=== PATIENT | female | born 1940 | race Caucasian/White ===

== ENCOUNTER 2016-05-16 20:55 | Emergency (ER) | payer OTHER, MEDICARE ==
[2016-05-16 21:01] VITALS: BMI 31.4
--- NOTE | 2016-05-16 21:07 | PDOC ---
Rapid Medical Evaluation Chief Complaint: Chest Pain Time Seen by Provider: 05/16/16 21:00 Medical Evaluation: Allergies Allergy/AdvReac Type Severity Reaction Status Date / Time ramipril [From Altace] Allergy Mild rash, Verified 05/16/16 20:59 itching Vital Signs Temp Pulse Resp BP Pulse Ox 97.9 F 55 L 20 158/76 100 05/16/16 20:59 05/16/16 20:59 05/16/16 20:59 05/16/16 20:59 05/16/16 20:59 05/16/16 21:03 RME Note: I have performed a brief, in-person evaluation of this patient . This patient presents with CC: sign. cardiac hx; with CP , left arm numbness with nausea Pertinent PE findings are: Pale I have ordered: EKG, labs; straight to ED post EKG The patient will proceed to ED for further evaluation.
[2016-05-16] MEDS ORDERED: morphine CARPU-JECT 2 MG/1 ML DISP.SYRIN IVPUSH ONE ×2 (21:17→22:06)
[2016-05-16] MEDS ORDERED: ASPIRIN 81 MG CHEWABLE TABLETS PO ONE (21:20)
[2016-05-16] MEDS ORDERED: HEPARIN NA (PORCINE) 5,000 UNITS/ML 1ML VIAL IVPUSH PRN (21:21)
[2016-05-16] MEDS ORDERED: CLOPIDOGREL BISULFATE 300 MG TABLET PO ONE (21:22)
[2016-05-16] MEDS ORDERED: ONDANSETRON 4 MG/2 ML VIAL IVPUSH STA (21:23)
[2016-05-16 21:24] LABS: BASOPHIL 0.6 % (0-2.0); EOSINOPHIL 1.2 % (0-4.5); MCH 30.2 pg (25.7-33.7); MCHC 33.8 g/dl (32.0-36.0); MEAN CELL VOLUME 89.6 fl (80-96); MEAN PLT VOLUME 8.7 fl (7.5-11.1); NEUTROPHILS 65.9 % (42.8-82.8); PLATELET COUNT 237 K/MM3 (134-434); WHITE BLOOD COUNT 9.5 K/mm3 (4.0-10.0)
[2016-05-16] MEDS ORDERED: METOPROLOL TARTRATE 5 MG/5 ML VIAL IVPUSH ONE (21:26)
[2016-05-16] MEDS ORDERED: CLOPIDOGREL BISULFATE 300 MG TABLET ONE (21:29)
[2016-05-16] MEDS ORDERED: ASPIRIN 81 MG CHEWABLE TABLETS ONE (21:29)
[2016-05-16] MEDS ORDERED: HEPARIN NA (PORCINE) 5,000 UNITS/ML 1ML VIAL ONE (21:29)
[2016-05-16] MEDS ORDERED: morphine CARPU-JECT 4 MG/1 ML DISP.SYRIN ONE ×2 (21:29→22:06)
[2016-05-16] MEDS ORDERED: ONDANSETRON 4 MG/2 ML VIAL ONE (21:29)
--- NOTE | 2016-05-16 21:30 | PDOC ---
[id number] No Limitations - History of Present Illness Initial Comments: 05/16/16 21:54 The patient is a 75 year old female with significant past medical history of CAD , PR x2 s/p CABG with stents x3, hypertension, diabetes, diverticulitis, and arthritis who presents to the ED with left sternal chest pain that began today. Patient reports she went to bed in her usual state of health last night when she suddenly developed left sternal chest pain early this morning that she describes as pressure-like sensation radiating down left arm and to the back. She states her chest pain was intermittent up until 5pm when her chest pain worsened and became persistent. She also has complaints of nausea, diaphoresis, and slightly SOB. Patient denies lightheadedness, vomiting, or leg swelling. The patient denies fever, chills, cough, abdominal pain, and diarrhea. Allergies: ramipril Social History: No alcohol, tobacco, or drug use reported. Past Surgical History: CABG with stents x3, cholecystectomy PCP: Dr. Darvin Cutler Cardio: Dr. Yasmany Lake <Estephania Couch - Last Filed: 05/16/16 22:59> - General History Source: Patient, Family <Blaine Loera - Last Filed: 05/17/16 19:18> - General Chief Complaint: Chest Pain Stated Complaint: CHEST PAIN Time Seen by Provider: 05/16/16 21:00 Past History <Estephania Couch - Last Filed: 05/16/16 22:59> - Past Medical History Cardiac Disorders: Yes (PR X 2) Diabetes: Yes (BORDERLINE) GI Disorders: Yes (DIVERTICULITIS) HTN: Yes - Surgical History Abdominal Surgery: Yes Cardiac Surgery: Yes (TRIPLE BYPASS AND STENTS X 3) Cholecystectomy: Yes - Psycho/Social/Smoking Cessation Hx Anxiety: Yes Suicidal Ideation: No Smoking Status: No Smoking History: Never smoked Have you smoked in the past 12 months: No Number of Cigarettes Smoked Daily: 0 If you are a former smoker, when did you quit?: 2005 Hx Alcohol Use: No Drug/Substance Use Hx: No Substance Use Type: None Hx Substance Use Treatment: No <Blaine Loera - Last Filed: 05/17/16 19:18> - Past Medical History Allergies/Adverse Reactions: Allergies Allergy/AdvReac Type Severity Reaction Status Date / Time ramipril [From Altace] Allergy Mild rash, Verified 05/16/16 20:59 itching Home Medications: Ambulatory Orders Atorvastatin Ca [Lipitor] 40 mg PO HS #1 tablet 10/28/13 Carvedilol 12.5 mg PO BID 05/16/16 Potassium Chloride [K-Dur -] 40 meq PO DAILY 05/16/16 Telmisartan 40 mg PO DAILY 05/16/16 Triamterene [Dyrenium -] 37.5 mg PO Q48H 05/16/16 Review of Systems - Review of Systems Able to Perform ROS?: Yes Comments:: 05/16/16 21:54 CONSTITUTIONAL: +diaphoresis Absent: fever, chills, generalized weakness, malaise, loss of appetite HEENT: Absent: rhinorrhea, nasal congestion, throat pain, throat swelling, difficulty swallowing, mouth swelling, ear pain, eye pain, visual Changes CARDIOVASCULAR: +left sternal chest pain radiating down left arm and to the back Absent: syncope , palpitations, irregular heart rate, lightheadedness, peripheral edema RESPIRATORY: +SOB Absent: cough, dyspnea with exertion, orthopnea, wheezing, stridor, hemoptysis GASTROINTESTINAL: +nausea Absent: abdominal pain, abdominal distension, vomiting, diarrhea, constipation, melena, hematochezia GENITOURINARY: Absent: dysuria, frequency, urgency, hesitancy, hematuria, flank pain, genital pain MUSCULOSKELETAL: Absent: arthralgia, joint swelling SKIN: Absent: rash, itching, pallor NEUROLOGIC: Absent: headache, focal weakness or paresthesias, dizziness, unsteady gait, seizure, mental status changes, bladder or bowel incontinence <Estephania Couch - Last Filed: 05/16/16 22:59> *Physical Exam - Vital Signs Last Vital Signs Temp Pulse Resp BP Pulse Ox 97.9 F 57 L 18 195/86 100 05/16/16 20:59 05/16/16 21:44 05/16/16 21:44 05/16/16 21:44 05/16/16 21:44 - Physical Exam Comments: 05/16/16 21:54 GENERAL: Well developed, well nourished. Awake and alert. Mild distress. HEENT: Normocephalic, atraumatic. PERRLA, EOMI. No conjunctival pallor. Sclera are non- icteric. Moist mucous membranes. Oropharynx is clear. NECK: Supple. Full ROM. No JVD. Carotid pulses 2+ and symmetric, without bruits. No thyromegaly. No lymphadenopathy. CARDIOVASCULAR: Bradycardia. Regular rhythm. No murmurs, rubs, or gallops. Distal pulses are 2+ and symmetric. PULMONARY: No evidence of respiratory distress. Lungs clear to auscultation bilaterally. No wheezing, rales or rhonchi. ABDOMINAL: Soft. Non-tender. Non-distended. No rebound or guarding. No organomegaly. Normoactive bowel sounds. MUSCULOSKELETAL Normal range of motion at all joints. No bony deformities or tenderness. No CVA tenderness. EXTREMITIES: No cyanosis. No clubbing. No edema. No calf tenderness. SKIN: Warm and dry. Normal capillary refill. No rashes. No jaundice. NEUROLOGICAL: Alert, awake, appropriate. Cranial nerves 2-12 intact. Moving all extremities. No gross focal neurological deficits. PSYCHIATRIC: Cooperative. Good eye contact. Appropriate mood and affect. <Estephania Couch - Last Filed: 05/16/16 22:59> - Vital Signs Last Vital Signs Temp Pulse Resp BP Pulse Ox 97.9 F 57 L 20 212/92 100 05/16/16 20:59 05/16/16 21:27 05/16/16 21:27 05/16/16 21:27 05/16/16 21:27 <Blaine Loera - Last Filed: 05/17/16 19:18> Heart Score/ECG Review - ECG Impressions Comment:: 05/16/16 21:07 Sinus bradycardia @53bpm St elevation, consider inferior injury or acute infarct ACUTE PR / STEMI Consider right ventricular involvement in acute inferior infarct Abnormal ECG 05/16/16 22:13 Sinus bradycardia @51bpm Otherwise normal ECG <Estephania Couch - Last Filed: 05/16/16 22:59> ED Treatment Course - LABORATORY CBC & Chemistry Diagram: 05/16/16 21:14 05/16/16 21:14 - ADDITIONAL ORDERS Additional order review: 05/16/16 21:14 RBC 4.50 MCV 89.6 MCHC 33.8 RDW 14.0 MPV 8.7 Neutrophils % 65.9 Lymphocytes % 24.0 Monocytes % 8.3 Eosinophils % 1.2 D Basophils % 0.6 - Medications Given in the ED: ED Medications Discontinued Medications Generic Name Dose Route Start Last Admin Trade Name Madhavi PRN Reason Stop Dose Admin Aspirin 324 mg 05/16/16 21:20 05/16/16 21:37 Asa - PO 05/16/16 21:21 324 mg ONCE ONE Administration Clopidogrel Bisulfate 600 mg 05/16/16 21:22 05/16/16 21:37 Plavix - PO 05/16/16 21:23 600 mg ONCE ONE Administration Metoprolol Tartrate 5 mg 05/16/16 21:26 05/16/16 21:48 Lopressor Injection - IVPUSH 05/16/16 21:27 Not Given ONCE ONE Morphine Sulfate 4 mg 05/16/16 21:17 05/16/16 21:37 Morphine Injection - IVPUSH 05/16/16 21:18 4 mg ONCE ONE Administration Ondansetron HCl 4 mg 05/16/16 21:23 05/16/16 21:37 Zofran Injection IVPUSH 05/16/16 21:24 4 mg ONCE STA Administration <Estephania Couch - Last Filed: 05/16/16 22:59> - LABORATORY CBC & Chemistry Diagram: 05/16/16 21:14 05/16/16 21:14 - ADDITIONAL ORDERS Additional order review: 05/16/16 21:14 RBC 4.50 MCV 89.6 MCHC 33.8 RDW 14.0 MPV 8.7 Neutrophils % 65.9 Lymphocytes % 24.0 Monocytes % 8.3 Eosinophils % 1.2 D Basophils % 0.6 <Blaine Loera - Last Filed: 05/17/16 19:18> Medical Decision Making - Medical Decision Making 05/16/16 21:[address] Alton Tapia (via cell phone) covering for Dr. Uriel Hernandez at 21:07 and case was discussed. Patient's EKG was transmitted to Dr. Tapia who confirmed inferior wall STEMI and asked for patient to be transferred to [facility] cardiac geochemical laboratory technician. 05/16/16 21:26 Paged [facility] ([facility]) transfer center for interventional cardiology on-call [phone] Awaiting call back for possible acceptance 05/16/16 21:40 Dr. Copeland, Interventional Cardiology, responded back at 21:40. States patient is not having STEMI after evaluating a transmitted EKG and advised to treat medically. 05/16/16 22:03 Paged [facility] transfer center at 22:[address] Woods, ER Attending at [facility], accepts patient's case. Subsequently, spoke to thermite bomb loader, Dr. Wesley, who will follow up with patient. <Estephania Couch - Last Filed: 05/16/16 22:59> - Medical Decision Making 05/16/16 22:42 Dr. Loera: The scribe's documentation has been prepared under my direction and personally reviewed by me in its entirery. I confirm that the note above accurately reflects all work, treatment, procedures, and medical decision making performed by me. <Blaine Loera - Last Filed: 05/17/16 19:18> *DC/Admit/Observation/Transfer - Attestations Scribe Attestion: 05/16/16 22:11 Documentation prepared by Estephania Couch, acting as medical billing specialist for Blaine Loera MD <Estephania Couch - Last Filed: 05/16/16 22:59> - Discharge Dispostion Admit: No - Transfer to Acute Care Facility Receiving Facility: [facility]. (Dr. Woods accepts case.) <Blaine Loera - Last Filed: 05/17/16 19:18> Diagnosis at time of Disposition: STEMI (ST elevation myocardial infarction) Qualifiers: Involved coronary artery: unspecified coronary artery Qualified Code(s): I21.3 - ST elevation (STEMI) myocardial infarction of unspecified site - Discharge Dispostion Disposition: TRANSFER ACUTE CARE/OTHER HOSP Condition at time of disposition: Guarded - Referrals Referrals: Darvin Cutler MD [Primary Care Provider] -
[2016-05-16 21:42] LABS: INR 1.06 (0.82-1.09); PROTHROMBIN TIME (PATIENT) 11.7 SEC (9.98-11.88)
[2016-05-16 21:45] LABS: ACTIVATED PTT 27.4 SECONDS (26.9-34.4)
[2016-05-16 21:56] LABS: ALBUMIN 3.3 g/dl (3.4-5.0); ANION GAP 11 (8-16); CALCIUM 8.4 mg/dL (8.5-10.1); CO2 26 mmol/L (21-32); CREATININE 0.9 mg/dL (0.55-1.02); GLUCOSE,RANDOM 121 mg/dL (74-106); SGOT/AST 13 U/L (15-37); SGPT/ALT 18 U/L (12-78)
[2016-05-16 22:00] LABS: ALK PHOS 73 U/L (45-117); BILIRUBIN,TOTAL 0.9 mg/dL (0.2-1.0); TOT PROT 7.3 g/dl (6.4-8.2); TROPONIN I 0.17 ng/ml (0.00-0.05)
[2016-05-16] MEDS ORDERED: morphine CARPU-JECT 2 MG/1 ML DISP.SYRIN ONE (22:07)
[2016-05-16 22:26] VITALS: PULSE 55
[2016-05-16 22:58] VITALS: BP 167/70; TEMP 98
--- NOTE | 2016-05-17 12:02 | EKG ---
Test Reason : Blood Pressure : / mmHG Vent. Rate : 051 BPM Atrial Rate : 051 BPM P-R Int : 154 ms QRS Dur : 084 ms QT Int : 446 ms P-R-T Axes : 075 034 051 degrees QTc Int : 411 ms SINUS BRADYCARDIA NONSPECIFIC ST ABNORMALITY WHEN COMPARED WITH ECG OF 07-AUG-2015 14:05, ST ELEVATION AND T WAVE ABNORMALITY NO LONGER SEEN IN INFERIOR LEADS AND I, AVL, V2 AND V3 CLINICAL CORRELATION IS RECOMMENDED Confirmed by VICTORIA CHAN MD ([id number]) on 05/17/2016 12:01:30 PM Referred By: Confirmed By:VICTORIA CHAN MD
--- NOTE | 2016-05-17 12:03 | EKG ---
Test Reason : Blood Pressure : / mmHG Vent. Rate : 053 BPM Atrial Rate : 053 BPM P-R Int : 154 ms QRS Dur : 080 ms QT Int : 430 ms P-R-T Axes : 014 035 076 degrees QTc Int : [address] ELEVATION CONSIDER INFERIOR INJURY OR ACUTE INFARCT ACUTE ND / STEMI Consider right ventricular involvement in acute inferior infarct ABNORMAL ECG WHEN COMPARED WITH ECG OF 07-AUG-2015 14:05, ST ELEVATION NOW PRESENT IN INFERIOR LEADS ST MORE DEPRESSED ANTERIOR LEADS T WAVE VARIATION CLINICAL CORRELATION IS RECOMMENDED Confirmed by VICTORIA CHAN MD ([id number]) on 05/17/2016 12:03:22 PM Referred By: Confirmed By:VICTORIA CHAN MD
== END 2016-05-16 22:58 | disposition short-term general hospital (02) ==
LOC: JER 20:55
PROC: 3E033NZ Introduction of Analgesics, Hypnotics, Sedatives into Peripheral Vein, Percutaneous Approach (ICD-10-PCS; principal; 2016-05-16)
PROC: 3E033GC Introduction of Other Therapeutic Substance into Peripheral Vein, Percutaneous Approach (ICD-10-PCS; 2016-05-16)
DX: I21.19 ST elevation (STEMI) myocardial infarction involving other coronary artery of inferior wall (principal); I25.10 Atherosclerotic heart disease of native coronary artery without angina pectoris; I10 Essential (primary) hypertension; Z95.1 Presence of aortocoronary bypass graft; Z95.5 Presence of coronary angioplasty implant and graft; E11.9 Type 2 diabetes mellitus without complications; K21.9 Gastro-esophageal reflux disease without esophagitis
CPT/HCPCS: 36415; 71010-TC; 80053; 82550; 84484; 85025; 85610; 85730; 93005; 93010; 96374; 96375; 99285-25; J1644

== ENCOUNTER 2018-12-13 13:32 | Inpatient (IN) | payer OTHER, MEDICARE ==
--- NOTE | 2018-12-13 13:57 | PDOC ---
Rapid Medical Evaluation Chief Complaint: Vomiting/Diarrhea Time Seen by Provider: 12/13/18 13:50 Medical Evaluation: Allergies Allergy/AdvReac Type Severity Reaction Status Date / Time ramipril [From Altace] Allergy Mild rash, Verified 05/16/16 20:59 itching 12/13/18 13:50 I have performed a brief in-person evaluation of this patient. The patient presents with a chief complaint of: vomiting/diarrhea, LUQ pain since yesterday, hx of diverticulitis Pertinent physical exam findings: tenderness to LUQ/LLQ, BP 199/93 I have ordered the following: labs, ekg, urine The patient will proceed to the ED for further evaluation. Discharge Disposition - Diagnosis Abdominal pain - Discharge Dispostion Condition at time of disposition: Stable - Referrals - Patient Instructions - Post Discharge Activity
[2018-12-13] MEDS ORDERED: SODIUM CHLORIDE 0.9% 500 ML INFUS.BAG IV ONE ×2 (14:22→20:14)
[2018-12-13] MEDS ORDERED: ONDANSETRON 4 MG/2 ML VIAL IVPUSH ONE (14:22)
[2018-12-13] MEDS ORDERED: morphine CARPU-JECT 4 MG/1 ML DISP.SYRIN IVPUSH ONE ×2 (14:22→15:16)
--- NOTE | 2018-12-13 14:25 | PDOC ---
History of Present Illness - General Chief Complaint: Vomiting/Diarrhea Stated Complaint: LT SIDE PAIN UNDER THE RIB/ VOMITING Time Seen by Provider: 12/13/18 13:50 History Source: Patient Exam Limitations: No Limitations - History of Present Illness Initial Comments: 12/13/18 14:47 Leila Perez is a 78yF w PMHx diverticulitis, ACS x3 s/p stents, depression, HTN, CAD presenting w LLQ pain. Last night, sudden onset LLQ pain radiating up to LUQ and L back Associated nausea, vomiting, diarrhea. Had sigmoid diverticulitis medically managed 3 years ago with similar symptoms. Denies fever , headache, cough, SOB, chest pain, urinary changes. Past History - Past Medical History Allergies/Adverse Reactions: Allergies Allergy/AdvReac Type Severity Reaction Status Date / Time ramipril [From Altace] Allergy Mild rash, Verified 05/16/16 20:59 itching Home Medications: Ambulatory Orders Atorvastatin Ca [Lipitor] 40 mg PO HS #1 tablet 10/28/13 Carvedilol 12.5 mg PO BID 05/16/16 Potassium Chloride [K-Dur -] 40 meq PO DAILY 05/16/16 Telmisartan 40 mg PO DAILY 05/16/16 Triamterene [Dyrenium -] 37.5 mg PO Q48H 05/16/16 Cardiac Disorders: Yes (SC X 2) COPD: No Diabetes: Yes (BORDERLINE) GI Disorders: Yes (DIVERTICULITIS) HTN: Yes - Surgical History Abdominal Surgery: Yes Cardiac Surgery: Yes (TRIPLE BYPASS AND STENTS X 3) Cholecystectomy: Yes - Immunization History Immunization Up to Date: No - Psycho Social/Smoking Cessation Hx Smoking Status: No Smoking History: Never smoked Have you smoked in the past 12 months: No Number of Cigarettes Smoked Daily: 0 If you are a former smoker, when did you quit?: 2005 Information on smoking cessation initiated: No Hx Alcohol Use: No Drug/Substance Use Hx: No Substance Use Type: None Hx Substance Use Treatment: No Review of Systems - Review of Systems Constitutional: No: Chills, Fever HEENTM: No: Eye Pain, Nose Pain, Throat Pain, Mouth Pain Respiratory: No: Cough, Shortness of Breath Cardiac (ROS): No: Chest Pain, Palpitations, Syncope ABD/GI: Yes: Diarrhea, Nausea, Vomiting. No: Abdominal Distended, Constipated : No: Burning, Dysuria, Discharge, Flank Pain, Hematuria Musculoskeletal: No: Back Pain, Joint Pain Integumentary: No: Bruising, Flushing, Lesions Neurological: No: Headache, Seizure, Tingling, Tremors Psychiatric: No: Anxiety, Depression, Stressors Endocrine: No: Excessive Sweating, Flushing, Intolerance to Cold, Intolerance to Heat Hematologic/Lymphatic: No: Anemia, Blood Clots *Physical Exam - Vital Signs Last Vital Signs Temp Pulse Resp BP Pulse Ox 98.6 F 74 16 199/93 H 100 12/13/18 13:49 12/13/18 13:49 12/13/18 13:49 12/13/18 13:49 12/13/18 13:49 - Physical Exam General Appearance: Yes: Nourished, Appropriately Dressed, Moderate Distress HEENT: positive: EOMI, LUI, Normal Voice, Hearing Grossly Normal. negative: Scleral Icterus (R), Scleral Icterus (L), Nasal Congestion, Rhinorrhea Respiratory/Chest: positive: Lungs Clear, Normal Breath Sounds. negative: Chest Tender, Respiratory Distress, Crackles, Rales, Rhonchi, Stridor, Wheezing Cardiovascular: positive: Regular Rhythm, Regular Rate, S1, S2. negative: Edema , Murmur Gastrointestinal/Abdominal: positive: Normal Bowel Sounds, Tender (moderate tender LLQ), Flat, Soft. negative: Organomegaly, Distended, Guarding, Rebound Musculoskeletal: negative: CVA Tenderness (R), CVA Tenderness (L) Extremity: positive: Delayed Capillary Refill Integumentary: positive: Normal Color, Dry Neurologic: positive: Fully Oriented, Alert, Normal Response, Responsive. negative: Sensory Deficit, Confused, Disoriented ED Treatment Course - LABORATORY CBC & Chemistry Diagram: 12/13/18 14:00 12/13/18 14:50 - RADIOLOGY Radiology Studies Ordered: Category Date Time Status ABDOMEN & PELVIS CT WITH CONTR [CT] Stat CT Scan 12/13/18 14:23 Ordered Medical Decision Making - Medical Decision Making 12/13/18 14:24 CBC CMP trop lipase UA Ucx EKG CXR coags T&S Given 2L NS for dehydration, 4 morphine for pain, zofran for nausea, 324 aspirin , 0.4 tamsulosin, NPO midnight CT AB/P shows 3.5mm obstructing stone at L ureterovesical junction, mild L hydroureteronephrosis w significant stranding of L perinephric fat, small/ moderate perinephric fluid, thickening of bladder wall, diverticulosis EKG shows NSR, HR 77, QTc 443, no ST changes trop 0.08 (prior 0.06-0.07) CBC CMP lipase normal Cr 1.3, WBC normal UA shows UTI - WBC 37, bacteria 4 --- Leila Perez is a 78yF w PMHx diverticulitis, ACS x3 s/p stents, depression, HTN, CAD presenting w 1d LLQ pain d/t septic ureteral stone seen on CT AB. Given 2L NS for hydration, 4 morphine for pain, zofran for nausea, 1g rocephin for infection, 324 aspirin for uptrending trop, 0.4 tamsulosin, NPO midnight. Consulted Dr Umana ultrasound technologist sonographer for Dr Smith cardiology regarding uptrending trop (0.08, 3hr 0.15) no chest pain/SOB, NSR EKG - advised trop will be uptrending in setting of sepsis/infection. Not informative if pt doesn't have cardiac symptoms or EKG changes. Does not need any intervention - Dr Chad Avilez cardiology in [place] Consulted Dr Durbin urology regarding septic kidney stone - advised rocephin, 1L NS, 0.4 tamsuloin, preop labs, NPO midnight, strain urine , plan tomorrow OR stent Admitted to Dr Cutler med/surg for septic kidney stone -NPO midnight, strain urine for stone, plan stent procedure tomorrow -pending preop labs Discharge - Discharge Information Problems reviewed: Yes Clinical Impression/Diagnosis: Hydronephrosis with renal and ureteral calculous obstruction Condition: Improved - Follow up/Referral - Patient Discharge Instructions - Post Discharge Activity
[2018-12-13] MEDS ORDERED: morphine SULFATE 4 MG/ML VIAL ONE ×2 (14:45→15:17)
[2018-12-13] MEDS ORDERED: ONDANSETRON 4 MG/2 ML VIAL ONE (14:46)
[2018-12-13 15:17] LABS: BASO % 0.7 % (0-2.0); EOS % 0.6 % (0-4.5); HEMATOCRIT 47.5 % (32.4-45.2); HEMOGLOBIN 15.8 GM/dL (10.7-15.3); MCH 29.8 pg (25.7-33.7); MCHC 33.2 g/dl (32.0-36.0); MEAN CELL VOLUME 89.7 fl (80-96); MEAN PLT VOLUME 9.7 fl (7.5-11.1); MONO % 3.8 % (3.8-10.2); NEUT % 79.9 % (42.8-82.8); PLATELET COUNT 223 K/MM3 (134-434); RDW 14.9 % (11.6-15.6); WHITE BLOOD COUNT 9.4 K/mm3 (4.0-10.0)
--- NOTE | 2018-12-13 15:23 | PDOC ---
Documentation entered by Kim Jarvis SCRIBE, acting as scribe for Dontrell Damon MD. Dontrell aDmon MD: This documentation has been prepared by the Simona houston Adrianna, SCRIBE, under my direction and personally reviewed by me in its entirety. I confirm that the documentation accurately reflects all work, treatment, procedures, and medical decision making performed by me. Attending Attestation - Resident Resident Name: Franklin Thurston - ED Attending Attestation I have performed the following: I have examined & evaluated the patient, The case was reviewed & discussed with the resident, I agree w/resident's findings & plan - HPI HPI: 12/13/18 15:20 78-year-old female with history of diverticulitis presents with acute onset of left lower abdominal pain that began yesterday in the setting of about 1 week of loose stool and nausea/vomiting over the last 2 days. No fevers or chills, no urinary complaints, pain is similar in quality to past diverticulitis, more severe in nature. No history of kidney stones. - Physicial Exam PE: 12/13/18 15:21 Blood pressure elevated, patient in moderate distress. Afebrile, O2 sat normal Heart is regular, lungs are clear Abdomen is soft/nondistended. Tender with guarding in the left lower quadrant with positive referred pain, positive rebound. No CVA tenderness. No palpable hernias. - Medical Decision Making 12/13/18 15:22 78-year-old female with vomiting/diarrhea/left lower quadrant abdominal pain, history of diverticulitis. Presentation could be consistent with colitis versus diverticulitis, rule out etiology. Labs, urinalysis CT of the abdomen and pelvis IV fluids, pain control, nausea control Reassess Heart Score/ECG Review #1 ECG reviewed & interpreted by me at: 13:41 General ECG Interpretation: Sinus Rhythm, Normal Rate (77), Normal Intervals ( qtc 443), No acute ischemic changes (isolated q III)
[2018-12-13 15:52] LABS: ALBUMIN 3.9 g/dl (3.4-5.0); BILIRUBIN,TOTAL 0.8 mg/dL (0.2-1); BLOOD UREA NITROGEN 20.9 mg/dL (7-18); CALCIUM 9.2 mg/dL (8.5-10.1); CREATININE 1.3 mg/dL (0.55-1.3); POTASSIUM 5.4 mmol/L (3.5-5.1)
[2018-12-13] MEDS ORDERED: ASPIRIN 81 MG CHEWABLE TABLETS PO ONE (19:55)
[2018-12-13] MEDS ORDERED: TAMSULOSIN HCL 0.4 MG CAP PO ONE (20:14)
[2018-12-13] MEDS ORDERED: CEFTRIAXONE 1,000 MG in DEXTROSE 5%-WATER - 50 ML IVPB ONE (20:14)
[2018-12-13 20:30] LABS: URINE APPEARANCE CLEAR; URINE BILIRUBIN NEGATIVE (NEGATIVE); URINE COLOR YELLOW; URINE GLUCOSE (UA) NEGATIVE (NEGATIVE); URINE KETONE NEGATIVE (NEGATIVE); URINE PROTEIN NEGATIVE (NEGATIVE); URINE UROBILINOGEN 0.2 mg/dL (0.2-1.0)
[2018-12-13 20:31] LABS: URINE LEUK ESTERASE SMALL (NEGATIVE); URINE NITRITE NEGATIVE (NEGATIVE)
[2018-12-13 20:34] LABS: EPI CELLS 4.4 /HPF (0-5/HPF); HYALINE CASTS 2.96 /lpf (0-8); URINE BACTERIA 7.7 /hpf (NEGATIVE); URINE RBC 142 /hpf (0-4); URINE WBC 34.8 /hpf (0-5)
[2018-12-13] MEDS ORDERED: ASPIRIN 81 MG CHEWABLE TABLETS ONE (21:17)
[2018-12-13] MEDS ORDERED: TAMSULOSIN HCL 0.4 MG CAP ONE (21:17)
[2018-12-13] MEDS ORDERED: CEFTRIAXONE 1 GM/50 ML BAG ONE (21:18)
[2018-12-13 22:50] LABS: INR 0.98 (0.83-1.09); PROTHROMBIN TIME (PATIENT) 11.6 SEC (9.7-13.0)
[2018-12-13 22:53] LABS: ACTIVATED PTT 20.2 SECONDS (25.2-36.5)
--- NOTE | 2018-12-14 00:02 | PN ---
Teaching Attending Note Name of Resident: Francesco Griggs ATTENDING PHYSICIAN STATEMENT I saw and evaluated the patient. I reviewed the resident's note and discussed the case with the resident. I agree with the resident's findings and plan as documented. SUBJECTIVE: 78yF w PMHx diverticulitis depression, HTN, CAD s/p cabg presenting w LLQ pain. Last night, sudden onset LLQ pain radiating up to LUQ and L back Associated nausea and desire to vomit. Denied any history of kidney stones. OBJECTIVE: Last Vital Signs Temp Pulse Resp BP Pulse Ox 98.6 F 74 16 199/93 H 100 12/13/18 13:49 12/13/18 13:49 12/13/18 13:49 12/13/18 13:49 12/13/18 13:49 gen- nad, aaox3 heent- moist oral mucosa neck supple cv- s1+s2+rrr, vertical chest scar chest cta abdomen- soft, bs+ Abnormal Lab Results 12/13/18 12/13/18 12/13/18 14:00 14:50 14:50 RBC 5.30 H Hgb 15.8 H Hct 47.5 H D PTT (Actin FS) Potassium 5.4 H Chloride 108 H BUN 20.9 H Random Glucose 141 H AST 38 H Troponin I 0.08 H Ur Specific [place] 12/13/18 12/13/18 12/13/18 18:36 18:40 22:00 RBC Hgb Hct PTT (Actin FS) 20.2 L Potassium Chloride BUN Random Glucose AST Troponin I 0.15 H Ur Specific [place] 1.[address] of abdomen /pelvis reviewed- 3.5mm obstructing stone - UVJ, resulting in mild left hydronephrosis ASSESSMENT AND PLAN: left sided UVJ renal stone as above w/ resultant hydronephrosis. Case presented to urology. -admit to med/surg -iv fluid hydration -morphine for pain control -zofran iv prn for nausea -flomax -npo -pt/ptt -type and screen -urology consult -rocephin preoperatively -hold asa perioperatively -dvt ppx -scds
--- NOTE | 2018-12-14 00:14 | HP ---
CHIEF COMPLAINT: left lower quadrant abdominal/ flank pain PCP: Dr. Cutler HISTORY OF PRESENT ILLNESS: Patient is a 78 year old female with history of sigmoid diverticulitis, [place] s/p CABG, PCI, hypertension, diabetes mellitus, presents with complaint of left lower quadrant abdominal and flank pain. Patient endorses pain began yesterday while she was lying down. Pain described as sharp, with radiation down her left side abdomen. Pain initially intermittent, and has progressed to constant, with worsening severity prompting presentation to ED. Denies subjective fevers, chills, shrotness of breath, chest pain, palpitations, vomiting. ER course was notable for: (1) CT abdomen, pelvis reveals 3.5mm obstructing stone at left ureterovesical junction with resultant mild hydroureteronephrosis, and left perinephric fat stranding. (2) (3) Recent Travel: denies PAST MEDICAL HISTORY: diverticulitis, [place] s/p PCI, hypertension, diabetes mellitus PAST SURGICAL HISTORY: cholecystectomy, CABG, coronary stents Social History: Smoking: denies Alcohol: denies Drugs: denies Works in billing department. Allergies ramipril [From [employer]] Allergy (Mild, Verified 05/16/16 20:59) rash, itching HOME MEDICATIONS: Home Medications Medication Instructions Recorded Atorvastatin Ca [Lipitor] 40 mg PO HS #1 tablet 10/28/13 Carvedilol 12.5 mg PO BID 05/16/16 Potassium Chloride [K-Dur -] 40 meq PO DAILY 05/16/16 Telmisartan 40 mg PO DAILY 05/16/16 Triamterene [Dyrenium -] 37.5 mg PO Q48H 05/16/16 REVIEW OF SYSTEMS As per HPI PHYSICAL EXAMINATION Vital Signs - 24 hr 12/13/18 13:49 Temperature 98.6 F Pulse Rate 74 Respiratory 16 Rate Blood Pressure 199/93 H O2 Sat by Pulse 100 Oximetry (%) GENERAL: The patient is awake, alert, and fully oriented, in no acute distress. HEAD: Normocephalic, atraumatic. EYES: PERRL, extraocular movements intact, sclera anicteric, conjunctiva clear. ENT: Oropharynx clear, without erythema or exudates. Moist mucous membranes. NECK: Trachea midline, full range of motion. Supple without lymphadenopathy. LUNGS: Breath sounds equal, clear to auscultation bilaterally, no wheezes, no crackles. No accessory muscle use. HEART: Regular rate and rhythm, S1, S2 without murmur, rub or gallop. ABDOMEN: Soft, nondistended, mild left lower quadrant tenderness to deep palpation. No rebound tenderness, no guarding. Normoactive bowel sounds x4 quadrants. No hepatosplenomegaly, no masses. Negative CVA tenderness bilaterally. EXTREMITIES: 2+ radial, dorsalis pedis pulses bilaterally. Warm, well-perfused. No lower extremity edema bilaterally. NEUROLOGICAL: Cranial nerves II through XII grossly intact. Normal speech. No gross focal deficits. PSYCH: Normal mood, normal affect upon my encounter. SKIN: Warm, dry. Laboratory Results - last 24 hr 12/13/18 12/13/18 12/13/18 14:00 14:50 14:50 WBC 9.4 RBC 5.30 H Hgb 15.8 H Hct 47.5 H D MCV 89.7 MCH 29.8 MCHC 33.2 RDW 14.9 Plt Count 223 MPV 9.7 D Absolute Neuts (auto) 7.5 Neutrophils % 79.9 D Lymphocytes % 15.0 D Monocytes % 3.8 Eosinophils % 0.6 Basophils % 0.7 Nucleated RBC % 0 PT with INR INR PTT (Actin FS) Sodium 141 Potassium 5.4 H Chloride 108 H Carbon Dioxide 25 Anion Gap 8 BUN 20.9 H Creatinine 1.3 Est GFR (CKD-EPI)AfAm 45.19 Est GFR (CKD-EPI)NonAf 38.99 Random Glucose 141 H Calcium 9.2 Total Bilirubin 0.8 AST 38 H ALT 22 Alkaline Phosphatase 95 Troponin I 0.08 H Total Protein 8.0 Albumin 3.9 Lipase 87 Urine Color Urine Appearance Urine pH Ur Specific [place] Urine Protein Urine Glucose (UA) Urine Ketones Urine Blood Urine Nitrite Urine Bilirubin Urine Urobilinogen Ur Leukocyte Esterase Urine WBC (Auto) Urine RBC (Auto) Urine Casts (Auto) U Epithel Cells (Auto) Urine Bacteria (Auto) Blood Type Antibody Screen 12/13/18 12/13/18 12/13/18 18:36 18:40 22:00 WBC RBC Hgb Hct MCV MCH MCHC RDW Plt Count MPV Absolute Neuts (auto) Neutrophils % Lymphocytes % Monocytes % Eosinophils % Basophils % Nucleated RBC % PT with INR 11.60 INR 0.98 PTT (Actin FS) 20.2 L Sodium Potassium Chloride Carbon Dioxide Anion Gap BUN Creatinine Est GFR (CKD-EPI)AfAm Est GFR (CKD-EPI)NonAf Random Glucose Calcium Total Bilirubin AST ALT Alkaline Phosphatase Troponin I 0.15 H Total Protein Albumin Lipase Urine Color Yellow Urine Appearance Clear Urine pH 5.0 Ur Specific [place] 1.061 H Urine Protein Negative Urine Glucose (UA) Negative Urine Ketones Negative Urine Blood Large Urine Nitrite Negative Urine Bilirubin Negative Urine Urobilinogen 0.2 Ur Leukocyte Esterase Small Urine WBC (Auto) 34.8 Urine RBC (Auto) 142 Urine Casts (Auto) 2.96 U Epithel Cells (Auto) 4.4 Urine Bacteria (Auto) 7.7 Blood Type Antibody Screen 12/13/18 12/13/18 22:00 22:00 WBC RBC Hgb Hct MCV MCH MCHC RDW Plt Count MPV Absolute Neuts (auto) Neutrophils % Lymphocytes % Monocytes % Eosinophils % Basophils % Nucleated RBC % PT with INR Cancelled INR Cancelled PTT (Actin FS) Sodium Potassium Chloride Carbon Dioxide Anion Gap BUN Creatinine Est GFR (CKD-EPI)AfAm Est GFR (CKD-EPI)NonAf Random Glucose Calcium Total Bilirubin AST ALT Alkaline Phosphatase Troponin I Total Protein Albumin Lipase Urine Color Urine Appearance Urine pH Ur Specific [place] Urine Protein Urine Glucose (UA) Urine Ketones Urine Blood Urine Nitrite Urine Bilirubin Urine Urobilinogen Ur Leukocyte Esterase Urine WBC (Auto) Urine RBC (Auto) Urine Casts (Auto) U Epithel Cells (Auto) Urine Bacteria (Auto) Blood Type O POSITIVE Antibody Screen Negative ASSESSMENT/PLAN: Patient is a 78 year old female with history of sigmoid diverticulitis, [place] s/p CABG, PCI, hypertension, diabetes mellitus, presents with complaint of left lower quadrant abdominal and flank pain. Left sided nephrolithiasis -CT abdomen, pelvis reveals 3.5mm obstructing stone at left ureterovesical junction with resultant mild hydroureteronephrosis, and left perinephric fat stranding. Urinary bladder thickening noted. -Case discussed with Dr. Durbin; recommendations appreciated. -Rocephin 1 gram IV administered -Tamsulosin 0.4mg PO -NPO, pre-operative labs ordered for stent placement likely today. Troponinemia -Likely secondary to sepsis. 0.08 -> 0.15 -> 0.20 -EKG reveals normal sinus rhythm at 77BPM, without ischemic changes. -Cardiology evaluation, Dr. Umana appreciated. Coronary artery disease -Plavix currently held pending Urology evaluation for possible stent. Reinstate once clinically appropriate. Hypertension -Currently normotensive. Continue home antihypertensives; Coreg, Telmisartan FEN -IV normal saline at 75mL/ hour -Follow BMP -NPO Prophylaxis -SCDs bilateral lower extremities. Chemical anticoagulation held in anticipation of stent placement. Disposition -Admit to medical surgical floor. Visit type - Emergency Visit Emergency Visit: Yes ED Registration Date: 12/13/18 Care time: The patient presented to the Emergency Department on the above date and was hospitalized for further evaluation of their emergent condition. - New Patient This patient is new to me today: Yes Date on this admission: 12/14/18 - Critical Care Critical Care patient: No ATTENDING PHYSICIAN STATEMENT I saw and evaluated the patient. I reviewed the resident's note and discussed the case with the resident. I agree with the resident's findings and plan as documented. SUBJECTIVE: OBJECTIVE: ASSESSMENT AND PLAN:
[2018-12-14] MEDS ORDERED: SODIUM CHLORIDE 1,000 ML IV SCH (00:15)
[2018-12-14] MEDS: INSULIN SLIDING SCALE (NOVOLOG) 1 VIAL SQ SCH ×4 (01:26→17:01)
[2018-12-14 05:28] VITALS: BMI 36.4
[2018-12-14 08:24] LABS: HEMATOCRIT 38.3 % (32.4-45.2); HEMOGLOBIN 12.9 GM/dL (10.7-15.3); MCH 30.6 pg (25.7-33.7); MCHC 33.8 g/dl (32.0-36.0); MEAN CELL VOLUME 90.6 fl (80-96); PLATELET COUNT 183 K/MM3 (134-434); RBC 4.22 M/mm3 (3.60-5.2); RDW 14.5 % (11.6-15.6); WHITE BLOOD COUNT 6.3 K/mm3 (4.0-10.0)
[2018-12-14 08:39] LABS: INR 1.06 (0.83-1.09); PROTHROMBIN TIME (PATIENT) 12.5 SEC (9.7-13.0)
[2018-12-14 08:42] LABS: ACTIVATED PTT 28.4 SECONDS (25.2-36.5)
--- NOTE | 2018-12-14 09:12 | PN ---
Progress Note, Physician Chief Complaint: 78 y.o F was admitted to [facility] with severe left flank pain. CT abdomen pelvis showed 3.5 mm obstructing stone UPJ. Afrer consulting with the urologist the cystoscopy / lithotripsy/stent were scheduled. History of Present Illness: ASHD. [place], CABF, PCI's. Diverticulitis Left colon. HTN Descending and sigmoid diverticulitis. Pancreatic cyst/mass-follows by Dr. Todd to R/O carcinoid Gout Major Depression/Bipolar-Dr. Monroy [facility] DM type 2 on Glucophage.. Gallstones - Current Medication List Current Medications: Active Medications Carvedilol (Coreg -) 12.5 mg PO BID [facility] Sodium Chloride (Normal Saline -) 1,000 mls @ 75 mls/hr IV ASDIR [facility] Last Admin: 12/14/18 00:24 Dose: 75 mls/hr Insulin Aspart (Novolog Vial Sliding Scale -) 1 vial SQ Q6HPO [facility]; Protocol Last Admin: 12/14/18 06:31 Dose: Not Given Valsartan (Diovan -) 160 mg PO DAILY [facility] - Objective Vital Signs: Vital Signs Temperature 97.6 F 12/14/18 05:18 Pulse Rate 75 12/14/18 05:18 Respiratory Rate 18 12/14/18 05:18 Blood Pressure 154/72 12/14/18 05:18 O2 Sat by Pulse Oximetry (%) 97 12/14/18 05:18 Constitutional: Yes: Anxious, Moderate Distress Eyes: Yes: Conjunctiva Clear, EOM Intact HENT: Yes: Atraumatic, Normocephalic Neck: Yes: Supple, Trachea Midline Cardiovascular: Yes: Regular Rate and Rhythm Respiratory: Yes: Regular, CTA Bilaterally Gastrointestinal: Yes: Normal Bowel Sounds, Soft, Abdomen, Obese ...Rectal Exam: Yes: Deferred Genitourinary: No: Anuria Breast(s): Yes: WNL Musculoskeletal: Yes: Back Pain (Left flank) Edema: No Peripheral Pulses WNL: No Integumentary: Yes: WNL Neurological: Yes: WNL, Alert, Oriented ...Motor Strength: WNL Psychiatric: Yes: Alert, Oriented. No: Agitated, Suicidal Ideation Labs: CBC, BMP 12/14/18 06:50 INR, PTT INR 1.06 (0.83-1.09) 12/14/18 06:50 - ....Imaging Chest X-ray: Report Reviewed Cat Scan: Report Reviewed EKG: Image Reviewed Problem List - Problems (1) Hydronephrosis with renal and ureteral calculous obstruction Assessment/Plan: Lithotripsy today as per urology. Ceftriaxone IV started. Urine Cx-P Problems reviewed: Yes Code(s): N13.2 - HYDRONEPHROSIS WITH RENAL AND URETERAL CALCULOUS OBSTRUCTION (2) ASHD (arteriosclerotic heart disease) Assessment/Plan: Seen by Dr Umana. Elevated Troponin noted follow Trop I. Problems reviewed: Yes Code(s): I25.10 - ATHSCL HEART DISEASE OF [place] CORONARY ARTERY W/O ANG PCTRS (3) Acute diverticulitis Assessment/Plan: No acute diverticulitis now Miralax PO Problems reviewed: Yes Code(s): K57.92 - DVTRCLI OF INTEST, PART UNSP, W/O PERF OR ABSCESS W/O BLEED (4) Gout Assessment/Plan: Uric acid levels Start Allopurinol 100 mg PO. Code(s): M10.9 - GOUT, UNSPECIFIED (5) HTN (hypertension) Assessment/Plan: Follow BP, Diovan PO. Problems reviewed: Yes Code(s): I10 - ESSENTIAL (PRIMARY) HYPERTENSION Qualifiers: Hypertension type: essential hypertension Qualified Code(s): I10 - Essential (primary) hypertension (6) Hypokalemia Assessment/Plan: Normal K now , follow K. Code(s): E87.6 - HYPOKALEMIA
[2018-12-14 09:28] LABS: BLOOD UREA NITROGEN 14.7 mg/dL (7-18); CALCIUM 7.8 mg/dL (8.5-10.1); CREATININE 0.9 mg/dL (0.55-1.3); MAGNESIUM 1.7 mg/dL (1.8-2.4); PHOSPHOROUS 3.4 mg/dL (2.5-4.9); POTASSIUM 3.7 mmol/L (3.5-5.1)
--- NOTE | 2018-12-14 09:38 | CON.CARD ---
Consult Consult Specialty:: Cardiology Referred by:: Dr. Cutler Reason for Consultation:: CAD history - History of Present Illness Chief Complaint: L flank pain, nausea, diarrhea and abdominal pain History of Present Illness: 78F CAD s/p CABG and prior PCI admitted w/ diarrhea, abdominal pain, left flank pain found to have obtructing renal stone with hydro on CT. Denies CP, SOB, palps ECG: NSR, cannot r/o old IWMI, no acute ST changes. Laboratory Tests 12/13/18 12/14/18 12/14/18 18:36 01:05 06:50 Troponin I 0.15 H 0.20 H 0.16 H Enzymes sent by ER, flat with no sig uptrend and no cardiac sx - History Source History Provided By: Patient - Past Medical History Cardio/Vascular: Yes: CAD, HTN, [place] (x2, S/P CABG) Gastrointestinal: Yes: Diverticulitis, Diverticulosis Hepatobiliary: Yes: Cholelithiasis (cholecystectomy) ...: No Psych: Yes: Anxiety, Bipolar, Depression Musculoskeletal: Yes: Osteoarthritis Endocrine: Yes: Diabetes Mellitus - Past Surgical History Past Surgical History: Yes: CABG, Cholecystectomy - Alcohol/Substance Use Hx Alcohol Use: No - Smoking History Smoking history: Former smoker Have you smoked in the past 12 months: No Aproximately how many cigarettes per day: 0 If you are a former smoker, when did you quit?: 2006 - Social History ADL: Independent History of Recent Travel: No Home Medications - Allergies Allergies/Adverse Reactions: Allergies Allergy/AdvReac Type Severity Reaction Status Date / Time ramipril [From [employer]] Allergy Mild rash, Verified 05/16/16 20:59 itching - Home Medications Home Medications: Ambulatory Orders Carvedilol 12.5 mg PO BID 05/16/16 Potassium Chloride [K-Dur -] 40 meq PO DAILY 05/16/16 Telmisartan 40 mg PO DAILY 05/16/16 Triamterene [Dyrenium -] 37.5 mg PO Q48H 05/16/16 Clopidogrel Bisulfate [Clopidogrel] 37.5 mg PO DAILY 12/14/18 Family Medical History Family History: Unremarkable Review of Systems Findings/Remarks: see HPI - Review of Systems Constitutional: reports: No Symptoms Eyes: reports: No Symptoms HENT: reports: No Symptoms Neck: reports: No Symptoms Cardiovascular: reports: No Symptoms Respiratory: reports: No Symptoms Gastrointestinal: reports: Abdominal Pain, Diarrhea, Nausea Genitourinary: denies: No Symptoms, Burning, Discharge, Dysuria, Flank Pain, Frequency, Hematuria, Incontinence, Lesions, Menses, Pain, Testicular Mass, Testicular Pain, Testicular Swelling, Urgency, Vaginal Bleeding, Other Breasts: denies: No Symptoms Reported, See HPI, Breast Implants, Discharge from Nipple, Lumps, Pain, Skin Changes, Other Musculoskeletal: denies: No Symptoms, Back Pain, Crepitus, Decreased ROM, Extremity Pain, Joint Pain, Joint Swelling, Muscle Pain, Muscle Cramps, Muscle Weakness, Other Integumentary: denies: No Symptoms, Blister, Bruising, Change in Color, Eczema, Erythema, Incision, Lesions, Lump, Pallor, Pruritis, Rash, Wound, Other Neurological: denies: No Symptoms, Change in LOC, Change in Speech, Confusion, Dizziness, Headache, Incoordination, Numbness, Parasthesia, Pre-Existing Deficit , Seizure, Syncope, Tremors, Unsteady Gait, Weakness, Other Endocrine: denies: No Symptoms, Excessive Sweating, Flushing, Increased Hunger, Increased Thirst, Intolerance to Cold, Intolerance to Heat, Unexplained Weight Gain, Unexplained Weight Loss, Other Hematology/Lymphatic: denies: No Symptoms, Easily Bruised, Excessive Bleeding, Swollen Glands, Other - Risk Factors Known Risk Factors: Yes: Prior NC /Emb Stroke Vital Signs: Vital Signs Temperature 97.6 F 12/14/18 05:18 Pulse Rate 75 12/14/18 05:18 Respiratory Rate 18 12/14/18 05:18 Blood Pressure 154/72 12/14/18 05:18 O2 Sat by Pulse Oximetry (%) 97 12/14/18 05:18 Constitutional: Yes: No Distress Eyes: Yes: Conjunctiva Clear HENT: Yes: Atraumatic, Normocephalic Neck: Yes: Trachea Midline Respiratory: Yes: CTA Bilaterally Gastrointestinal: Yes: Soft (no rebound or guarding) Heart Sounds: Yes: S2 (rrr) Edema: No Peripheral Pulses WNL: Yes Neurological: Yes: Alert, Oriented ...Motor Strength: WNL - Other Data Labs, Other Data: CBC, BMP 12/14/18 06:50 12/14/18 06:50 INR, PTT INR 1.06 (0.83-1.09) 12/14/18 06:50 Troponin, BNP 12/13/18 12/13/18 12/14/18 14:50 18:36 01:05 Troponin I 0.08 H 0.15 H 0.20 H Troponin, BNP 12/13/18 12/13/18 12/14/18 14:50 18:36 01:05 Troponin I 0.08 H 0.15 H 0.20 H NSR, prob old IWMI, no acute ST Echo: Pending Prior Cardiac Procedures: CABG, PTCA with Stent Imaging - Results Chest X-ray: Image Reviewed Cat Scan: Report Reviewed EKG: Image Reviewed Assessment/Plan IMP: Abdominal pain, nausea: obstructive renal calculus with hydro History of CAD s/p CABG and PCI Equivocal /borderline TnI REC: 1. The equivocal/indeterminate range TnI likely does not represent ACS: she is asx from CV perspective and has no acute ST changes. It may represent chronic/ baseline from hypertensive heart disease vs mild demand ischemia in setting pain /infection 2. Echo for EF assessment 3. Abx as per PMD 4. If procedure is deemed necessary for obstructive calculus, there are no absolute cardiac contraindications and this may help prevent further infection etc
[2018-12-14] MEDS ORDERED: cefTRIAXone SODIUM 1 GM VIAL ONE (09:44)
[2018-12-14] MEDS ORDERED: DEXTROSE 5%-WATER - 50 ML IVPB ONE (09:44)
[2018-12-14] MEDS ORDERED: ALLOPURINOL 100 MG TABLET (FP) PO SCH (10:00)
[2018-12-14] MEDS ORDERED: CLOPIDOGREL BISULFATE 75 MG TABLET (FP) PO SCH ×2 (10:00)
[2018-12-14] MEDS ORDERED: VALSARTAN 160 MG TABLET (UD) PO SCH (10:00)
[2018-12-14] MEDS ORDERED: POLYETHYLENE GLYCOL 3350 119 GM BTL PO SCH (10:00)
[2018-12-14] MEDS ORDERED: CEFTRIAXONE 1 GM in DEXTROSE 5%-WATER - 50 ML IVPB SCH (10:00)
[2018-12-14] MEDS ORDERED: CARVEDILOL 12.5 MG TABLET (FP) PO SCH (10:00)
--- NOTE | 2018-12-14 11:06 | CON.GU ---
Consult Consult Specialty:: Reason for Consultation:: L UVJ calculus - History of Present Illness Chief Complaint: LLQ pain History of Present Illness: 78 year old female with history of sigmoid diverticulitis, [place] s/p CABG, PCI, hypertension, diabetes mellitus, presents with complaint of left lower quadrant abdominal and flank pain. Patient endorses pain began yesterday while she was lying down. Pain described as sharp, with radiation down her left side abdomen. Pain initially intermittent, and has progressed to constant, with worsening severity prompting presentation to ED. Denies subjective fevers, chills, shrotness of breath, chest pain, palpitations, vomiting. cons req. ER course was notable for: (1) CT abdomen, pelvis reveals 3.5mm obstructing stone at left ureterovesical junction with resultant mild hydroureteronephrosis, and left perinephric fat stranding. (2) (3) Recent Travel: denies PAST MEDICAL HISTORY: diverticulitis, [place] s/p PCI, hypertension, diabetes mellitus PAST SURGICAL HISTORY: cholecystectomy, CABG, coronary stents Social History: Smoking: denies Alcohol: denies Drugs: denies Works in [employer] department. - Past Medical History Cardio/Vascular: Yes: CAD, HTN, [place] (x2, S/P CABG) Gastrointestinal: Yes: Diverticulitis, Diverticulosis Hepatobiliary: Yes: Cholelithiasis (cholecystectomy) ...: No Psych: Yes: Anxiety, Bipolar, Depression Musculoskeletal: Yes: Osteoarthritis Endocrine: Yes: Diabetes Mellitus - Past Surgical History Past Surgical History: Yes: CABG, Cholecystectomy - Alcohol/Substance Use Hx Alcohol Use: No - Smoking History Smoking history: Former smoker Have you smoked in the past 12 months: No Aproximately how many cigarettes per day: 0 If you are a former smoker, when did you quit?: 2006 - Social History ADL: Independent History of Recent Travel: No Home Medications - Allergies Allergies/Adverse Reactions: Allergies Allergy/AdvReac Type Severity Reaction Status Date / Time ramipril [From Alt[employer]] Allergy Mild rash, Verified 05/16/16 20:59 itching - Home Medications Home Medications: Ambulatory Orders Carvedilol 12.5 mg PO BID 05/16/16 Potassium Chloride [K-Dur -] 40 meq PO DAILY 05/16/16 Telmisartan 40 mg PO DAILY 05/16/16 Triamterene [Dyrenium -] 37.5 mg PO Q48H 05/16/16 Clopidogrel Bisulfate [Clopidogrel] 37.5 mg PO DAILY 12/14/18 Review of Systems - Review of Systems Gastrointestinal: reports: Abdominal Pain (LLQ) Genitourinary: reports: Flank Pain (L) Physical Exam- Vital Signs: Vital Signs Temperature 97.6 F 12/14/18 05:18 Pulse Rate 75 12/14/18 05:18 Respiratory Rate 18 12/14/18 05:18 Blood Pressure 154/72 12/14/18 05:18 O2 Sat by Pulse Oximetry (%) 97 12/14/18 05:18 Gastrointestinal: Yes: Soft, Tenderness (LLQ) Renal/: Yes: CVA Tenderness - Left Labs: CBC, BMP 12/14/18 06:50 12/14/18 06:50 Imaging - Results Cat Scan: Report Reviewed Problem List - Problems (1) Ureteral calculus, left Assessment/Plan: ivfs, tamsulosin, strain urine, L ureteroscopic laser lithotripsy and JJ stent insertion Code(s): N20.1 - CALCULUS OF URETER (2) Hydronephrosis with renal and ureteral calculous obstruction Code(s): N13.2 - HYDRONEPHROSIS WITH RENAL AND URETERAL CALCULOUS OBSTRUCTION
[2018-12-14] MEDS ORDERED: MIDAZOLAM HCL 2 MG/2 ML SINGLE DOSE VIAL ONE (11:54)
--- NOTE | 2018-12-14 11:58 | OP ---
Operative Note - Note: Operative Date: 12/14/18 Pre-Operative Diagnosis: L ureteral calculus, L hydronephrosis Operation: L ureteroscopic laser lithotripsy and JJ stent insertion Findings: L UVJ calculus Post-Operative Diagnosis: Same as Pre-op Surgeon: Servando Durbin Anesthesiologist/A[employer]IST CENTER: [facility] Anesthesia: General Specimens Removed: L ureteral calculus Estimated Blood Loss (mls): 0 Drains & Tubes with Location: 6 fr 24 cm L JJ stent Operative Report Dictated: Yes
[2018-12-14] MEDS ORDERED: ceFAZolin SODIUM 1 GM VIAL IVPB ONE (12:22)
--- NOTE | 2018-12-14 12:41 | EKG ---
Test Reason : Blood Pressure : / mmHG Vent. Rate : 078 BPM Atrial Rate : 078 BPM P-R Int : 170 ms QRS Dur : 076 ms QT Int : 410 ms P-R-T Axes : 066 038 012 degrees QTc Int : 467 ms SINUS RHYTHM WITH PREMATURE SUPRAVENTRICULAR COMPLEXES CANNOT RULE OUT INFERIOR INFARCT , AGE UNDETERMINED WHEN COMPARED WITH ECG OF 13-DEC-2018 13:41, PREMATURE SUPRAVENTRICULAR COMPLEXES ARE NOW PRESENT Confirmed by KIP LARES, TAM ([id number]) on 12/14/2018 12:41:14 PM Referred By: RICKEY TAM DR Confirmed By:TAM SHIN MD
--- NOTE | 2018-12-14 12:55 | EKG ---
Test Reason : Blood Pressure : / mmHG Vent. Rate : 077 BPM Atrial Rate : 077 BPM P-R Int : 162 ms QRS Dur : 076 ms QT Int : 392 ms P-R-T Axes : 074 030 024 degrees QTc Int : 443 ms NORMAL SINUS RHYTHM NONSPECIFIC ST ABNORMALITY WHEN COMPARED WITH ECG OF 16-MAY-2016 22:13, VENT. RATE HAS INCREASED BY 26 BPM Confirmed by TAM SHIN MD ([id number]) on 12/14/2018 12:54:52 PM Referred By: Confirmed By:TAM SHIN MD
[2018-12-14] MEDS ORDERED: ONDANSETRON 4 MG/2 ML VIAL IVPUSH PRN (13:29)
[2018-12-14] MEDS: SODIUM CHLORIDE 1,000 ML IV SCH ×3 (13:30→14:10)
[2018-12-14] MEDS ORDERED: LACTATED RINGERS SOLUTION 1,000 ML IV SCH ×2 (13:30→13:45)
[2018-12-14] MEDS: CARVEDILOL 12.5 MG TABLET (FP) PO SCH (21:34)
[2018-12-15] MEDS: INSULIN SLIDING SCALE (NOVOLOG) 1 VIAL SQ SCH ×3 (00:03→12:57)
[2018-12-15] MEDS: ACETAMINOPHEN 325 MG TABLET (FP) PO PRN ×2 (00:43→09:36)
[2018-12-15] MEDS: SODIUM CHLORIDE 1,000 ML IV SCH (03:42)
[2018-12-15] MEDS ORDERED: cefTRIAXone SODIUM 1 GM VIAL ONE (09:13)
[2018-12-15] MEDS ORDERED: DEXTROSE 5%-WATER - 50 ML IVPB ONE (09:13)
[2018-12-15] MEDS: CARVEDILOL 12.5 MG TABLET (FP) PO SCH (09:37)
[2018-12-15] MEDS: POLYETHYLENE GLYCOL 3350 119 GM BTL PO SCH ×2 (09:37→09:40)
[2018-12-15] MEDS ORDERED: CEFTRIAXONE 1 GM in DEXTROSE 5%-WATER - 50 ML IVPB SCH (10:00)
[2018-12-15] MEDS ORDERED: VALSARTAN 160 MG TABLET (UD) PO SCH (10:00)
[2018-12-15] MEDS ORDERED: CLOPIDOGREL BISULFATE 75 MG TABLET (FP) PO SCH (10:00)
[2018-12-15] MEDS ORDERED: ALLOPURINOL 100 MG TABLET (FP) PO SCH (10:00)
--- NOTE | 2018-12-15 10:39 | PN ---
Physical Exam: SUBJECTIVE: Patient seen and examined at the bedside. she reports incontinence, urine flows without her even straining to urinate. she is wearing pullups now. still having some left flank pain, but improved. no hematuria. [facility]/p lithotri[facility] and with left stent placement on 12/14/[address] Jay. on inspection of urethra, green coiled stent visualized exiting the urethra. spoke to dr. jay who advised to pull out the stent since patient is incontinent and stent is dislodged stent pulled out intact and discarded on advice of urologist. will send patient home with oral antibiotics with urology follow up outpatient. Patient is a 78 year old female with history of sigmoid diverticulitis, [place] s/p CABG, PCI, hypertension, diabetes mellitus, presents to the ED on 12/13/18 with complaint of left lower quadrant abdominal and flank pain. Patient endorses pain began yesterday while she was lying down. Pain described as sharp, with radiation down her left side abdomen. Pain initially intermittent, and has progressed to constant, with worsening severity prompting presentation to ED. Denies subjective fevers, chills, shrotness of breath, chest pain, palpitations , vomiting. Vital Signs Period Temp Pulse Resp BP Sys/De Paz Pulse Ox Last 24 Hr 97.6 F-98.7 F 62-81 16-20 130-150/51-81 96-98 GENERAL: The patient is awake, alert, and fully oriented, in no acute distress. HEAD: Normal with no signs of trauma. EYES: PERRL, extraocular movements intact, sclera anicteric, conjunctiva clear. No ptosis. ENT: Ears normal, nares patent, oropharynx clear without exudates, moist mucous membranes. NECK: Trachea midline, full range of motion, supple. LUNGS: Breath sounds equal, clear to auscultation bilaterally HEART: Regular rate and rhythm ABDOMEN: Soft, nontender, nondistended, normoactive bowel sounds, no guarding, no rebound, no hepatosplenomegaly, no masses. EXTREMITIES: no edema. NEUROLOGICAL: Normal speech, gait not observed. PSYCH: Normal mood, normal affect. SKIN: Warm, dry, normal turgor, no rashes or lesions noted VAGINAL EXAM: performed in the presence of primary care nurse. patient placed on lithomy position. urethra viewed with green coiled stent exiting the urethra. patient in continent of urine. no trauma or other drainage. stent pulled on advice of urologist. patient tolerated the procedure well. minimal scant bleeding on removal. no further bleeding after removal on pad. Laboratory Results - last 24 hr 12/14/18 12/15/18 12/15/18 16:13 00:02 06:18 POC Glucometer 90 110 86 Uric Acid 12/15/18 07:10 POC Glucometer Uric Acid 5.8 Active Medications Generic Name Dose Route Start Last Admin Trade Name Freq PRN Reason Stop Dose Admin Acetaminophen 650 mg 12/15/18 00:15 12/15/18 09:36 Tylenol - PO 650 mg Q6H PRN Administration PAIN LEVEL 1-5 Allopurinol 100 mg 12/15/18 10:00 12/15/18 09:37 Zyloprim - PO 100 mg DAILY GM Administration Carvedilol 12.5 mg 12/14/18 22:00 12/15/18 09:37 Coreg - PO 12.5 mg BID GM Administration Clopidogrel Bisulfate 75 mg 12/15/18 10:00 12/15/18 09:37 Plavix - PO 75 mg DAILY GM Administration Ceftriaxone Sodium 1 gm/ 50 mls @ 200 mls/hr 12/15/18 10:00 12/15/18 09:31 Dextrose IVPB 200 mls/hr DAILY [facility] Administration Protocol Sodium Chloride 1,000 mls @ 75 mls/hr 12/14/18 13:26 12/15/18 03:42 Normal Saline - IV 75 mls/hr ASDIR GM Administration Insulin Aspart 1 vial 12/14/18 18:00 12/15/18 06:19 Novolog Vial Sliding Scale - SQ Not Given Q6HPO [facility] Protocol Ondansetron HCl 4 mg 12/14/18 13:29 Zofran Injection IVPUSH 12/15/18 13:28 Q6H PRN NAUSEA AND/OR VOMITING Polyethylene Glycol 17 gm 12/15/18 10:00 12/15/18 09:40 Miralax (For Daily Use) - PO Not Given DAILY [facility] Valsartan 160 mg 12/15/18 10:00 12/15/18 09:37 Diovan - PO 160 mg DAILY [facility] Administration ASSESSMENT/PLAN: Problem List - Problems (1) Hydronephrosis with renal and ureteral calculous obstruction Assessment/Plan: s/p lithotripsy and stent placement. stent dislodged and removed. patient to f/u outpatient. continue ceftin 500mg bid x 5 more days. Code(s): N13.2 - HYDRONEPHROSIS WITH RENAL AND URETERAL CALCULOUS OBSTRUCTION (2) Ureteral calculus, left Assessment/Plan: patient is s/p lithotripsy and left stent placed on 12/14/[address] jay. stent noted to be dislodged on exam. discussed with urology (dr jay), who advised me to remove the stent, continue the antibiotics x 5 days. on removal, patient noted relief of incontinence and agrees to outpatient follow up. Code(s): N20.1 - CALCULUS OF URETER (3) Gout Assessment/Plan: continue home meds Code(s): M10.9 - GOUT, UNSPECIFIED (4) HTN (hypertension) Assessment/Plan: controlled. continue home meds. Code(s): I10 - ESSENTIAL (PRIMARY) HYPERTENSION Qualifiers: Hypertension type: essential hypertension Qualified Code(s): I10 - Essential (primary) hypertension (5) ASHD (arteriosclerotic heart disease) Assessment/Plan: followed by cardiology, elevated tropnins unlikely ACS. patient remains asymptomatic. 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 she will call for an appointment. no chest pain, no shortness of breath. she had an echo done february 2018. Code(s): I25.10 - ATHSCL HEART DISEASE OF [place] CORONARY ARTERY W/O ANG PCTRS Visit type - Emergency Visit Emergency Visit: Yes ED Registration Date: 12/13/18 Care time: The patient presented to the Emergency Department on the above date and was hospitalized for further evaluation of their emergent condition. - New Patient This patient is new to me today: Yes Date on this admission: 12/15/18 - Critical Care Critical Care patient: No - Discharge Referral Referred to [facility] No
--- NOTE | 2018-12-15 12:06 | PN ---
Progress Note (short form) - Note Progress Note: s: no cp sob palps dizzy Current Medications Generic Name Dose Route Start Last Admin Trade Name Freq PRN Reason Stop Dose Admin Acetaminophen 650 mg 12/15/18 00:15 12/15/18 09:36 Tylenol - PO 650 mg Q6H PRN Administration PAIN LEVEL 1-5 Allopurinol 100 mg 12/15/18 10:00 12/15/18 09:37 Zyloprim - PO 100 mg DAILY GM Administration Carvedilol 12.5 mg 12/14/18 22:00 12/15/18 09:37 Coreg - PO 12.5 mg BID GM Administration Clopidogrel Bisulfate 75 mg 12/15/18 10:00 12/15/18 09:37 Plavix - PO 75 mg DAILY [facility] Administration Ceftriaxone Sodium 1 gm/ 50 mls @ 200 mls/hr 12/15/18 10:00 12/15/18 09:31 Dextrose IVPB 200 mls/hr DAILY [facility] Administration Protocol Sodium Chloride 1,000 mls @ 75 mls/hr 12/14/18 13:26 12/15/18 03:42 Normal Saline - IV 75 mls/hr ASDIR GM Administration Insulin Aspart 1 vial 12/14/18 18:00 12/15/18 06:19 Novolog Vial Sliding Scale - SQ Not Given Q6HPO [facility] Protocol Ondansetron HCl 4 mg 12/14/18 13:29 Zofran Injection IVPUSH 12/15/18 13:28 Q6H PRN NAUSEA AND/OR VOMITING Polyethylene Glycol 17 gm 12/15/18 10:00 12/15/18 09:40 Miralax (For Daily Use) - PO Not Given DAILY [facility] Valsartan 160 mg 12/15/18 10:00 12/15/18 09:37 Diovan - PO 160 mg DAILY [facility] Administration Vital Signs Period Temp Pulse Resp BP Sys/De Paz Pulse Ox Last 24 Hr 97.6 F-98.7 F 62-81 16-20 130-150/51-81 96-98 Constitutional: Yes: No Distress Eyes: Yes: Conjunctiva Clear Neck: Yes: Trachea Midline Respiratory: Yes: CTA Bilaterally Gastrointestinal: Yes: Soft nt nd Heart Sounds: Yes: S2 (rrr) Edema: No Peripheral Pulses WNL: Yes Neurological: Yes: Alert, Oriented no jaundice diaphoresis CBC, BMP 12/14/18 06:50 12/14/18 06:50 NSR, prob old IWMI, no acute ST Prior Cardiac Procedures: CABG, PTCA with Stent Imaging - Results Chest X-ray: Image Reviewed Cat Scan: Report Reviewed EKG: Image Reviewed Assessment/Plan IMP: Abdominal pain, nausea: obstructive renal calculus with hydro History of CAD s/p CABG and PCI Equivocal /borderline TnI REC: 1. The equivocal/indeterminate range TnI likely does not represent ACS: she is asx from CV perspective and has no acute ST changes. It may represent chronic/ baseline from hypertensive heart disease vs mild demand ischemia in setting pain /infection 2. Echo for EF assessment 3. Abx as per PMD 4. following s/p ureter stenting
[2018-12-15 12:23] LABS: BASO % 0.3 % (0-2.0); EOS % 2.2 % (0-4.5); HEMATOCRIT 40.6 % (32.4-45.2); HEMOGLOBIN 13.4 GM/dL (10.7-15.3); LYMPH % 18.3 % (8-40); MCHC 32.9 g/dl (32.0-36.0); MEAN CELL VOLUME 91.1 fl (80-96); MEAN PLT VOLUME 9.3 fl (7.5-11.1); NEUT % 73.2 % (42.8-82.8); PLATELET COUNT 171 K/MM3 (134-434); RBC 4.46 M/mm3 (3.60-5.2); RDW 14.6 % (11.6-15.6); WHITE BLOOD COUNT 9.2 K/mm3 (4.0-10.0)
[2018-12-15 12:52] LABS: ALBUMIN 2.9 g/dl (3.4-5.0); BILIRUBIN,TOTAL 0.5 mg/dL (0.2-1); BLOOD UREA NITROGEN 10.6 mg/dL (7-18); CALCIUM 7.9 mg/dL (8.5-10.1); CREATININE 0.9 mg/dL (0.55-1.3); MAGNESIUM 1.6 mg/dL (1.8-2.4); POTASSIUM 3.6 mmol/L (3.5-5.1)
[2018-12-15] MEDS ORDERED: MAGNESIUM OXIDE 400 MG TABLET (FP) PO ONE (12:58)
--- NOTE | 2018-12-15 14:16 | DS ---
Physical Exam: SUBJECTIVE: Patient seen and examined Patient seen and examined at the bedside. she reports incontinence, urine flows without her even straining to urinate. she is wearing pullups now. still having some left flank pain, but improved. no hematuria. OBJECTIVE: [facility] coverage for Dr. Cutler s/p lithotripsy and with left stent placement on 12/14/[address] Durbin. on inspection of urethra, green coiled stent visualized exiting the urethra. spoke to dr. durbin who advised to pull out the stent since patient is incontinent and stent is dislodged stent pulled out intact and discarded on advice of urologist. will send patient home with oral antibiotics with urology follow up outpatient. Patient is a 78 year old female with history of sigmoid diverticulitis, [place] s/p CABG, PCI, hypertension, diabetes mellitus, presents to the ED on 12/13/18 with complaint of left lower quadrant abdominal and flank pain. Patient endorses pain began yesterday while she was lying down. Pain described as sharp, with radiation down her left side abdomen. Pain initially intermittent, and has progressed to constant, with worsening severity prompting presentation to ED. Denies subjective fevers, chills, shrotness of breath, chest pain, palpitations , vomiting. Vital Signs Period Temp Pulse Resp BP Sys/De Paz Pulse Ox Last 24 Hr 97.6 F-98.2 F 67-76 17-20 130-150/67-81 96-98 PHYSICAL EXAM GENERAL: The patient is awake, alert, and fully oriented, in no acute distress. HEAD: Normal with no signs of trauma. EYES: PERRL, extraocular movements intact, sclera anicteric, conjunctiva clear. No ptosis. ENT: Ears normal, nares patent, oropharynx clear without exudates, moist mucous membranes. NECK: Trachea midline, full range of motion, supple. LUNGS: Breath sounds equal, clear to auscultation bilaterally HEART: Regular rate and rhythm ABDOMEN: Soft, nontender, nondistended, normoactive bowel sounds, no guarding, no rebound, no hepatosplenomegaly, no masses. EXTREMITIES: no edema. NEUROLOGICAL: Normal speech, gait not observed. PSYCH: Normal mood, normal affect. SKIN: Warm, dry, normal turgor, no rashes or lesions noted VAGINAL EXAM: performed in the presence of primary care nurse. patient placed on lithomy position. urethra viewed with green coiled stent exiting the urethra. patient in continent of urine. no trauma or drainage noted. stent pulled on advice of urologist. patient tolerated the procedure well. minimal scant bleeding on removal. no further bleeding after removal on pad. LABS Laboratory Results - last 24 hr 12/14/18 12/15/18 12/15/18 16:13 00:02 06:18 WBC RBC Hgb Hct MCV MCH MCHC RDW Plt Count MPV Absolute Neuts (auto) Neutrophils % Lymphocytes % Monocytes % Eosinophils % Basophils % Nucleated RBC % Sodium Potassium Chloride Carbon Dioxide Anion Gap BUN Creatinine Est GFR (CKD-EPI)AfAm Est GFR (CKD-EPI)NonAf POC Glucometer 90 110 86 Random Glucose Uric Acid Calcium Magnesium Total Bilirubin AST ALT Alkaline Phosphatase Total Protein Albumin 12/15/18 12/15/18 12/15/18 07:10 11:30 11:30 WBC 9.2 RBC 4.46 Hgb 13.4 Hct 40.6 MCV 91.1 MCH 30.0 MCHC 32.9 RDW 14.6 Plt Count 171 MPV 9.3 Absolute Neuts (auto) 6.8 Neutrophils % 73.2 Lymphocytes % 18.3 D Monocytes % 6.0 Eosinophils % 2.2 D Basophils % 0.3 Nucleated RBC % 0 Sodium 148 H Potassium 3.6 Chloride 113 H Carbon Dioxide 27 Anion Gap 7 L BUN 10.6 Creatinine 0.9 Est GFR (CKD-EPI)AfAm 70.48 Est GFR (CKD-EPI)NonAf 60.81 POC Glucometer Random Glucose 102 Uric Acid 5.8 Calcium 7.9 L Magnesium 1.6 L Total Bilirubin 0.5 AST 10 L ALT 13 Alkaline Phosphatase 70 Total Protein 6.0 L Albumin 2.9 L HOSPITAL COURSE: Date of Admission:12/13/18 Date of Discharge: 12/15/18 Minutes to complete discharge: 45 Discharge Summary Problems reviewed: Yes Reason For Visit: HYDRONEPHROSIS WITH RENAL AND URETERAL CALCULUS Current Active Problems Abdominal pain (Acute) Hydronephrosis with renal and ureteral calculous obstruction (Acute) Ureteral calculus, left (Acute) Condition: Improved - Instructions Diet, Activity, Other Instructions: Mrs Perez: Please follow up with Dr. Durbin for follow up on renal stent. New medications: Ceftin 500mg TWICE per day at 8am and 8pm for 5 more days start tomorrow 2018 until 12/20/2018. You will need a repeat echocardogram. Please call your spray machine operator and have this arranged. It is important that you do so. Continue your home medications. The only addition is the antibiotic. Thank you for allowing us to care for you. Referrals: Servando Durbin MD [Staff Physician] - Disposition: HOME - Home Medications Comprehensive Discharge Medication List: Ambulatory Orders Carvedilol 12.5 mg PO BID 05/16/16 Potassium Chloride [K-Dur -] 40 meq PO DAILY 05/16/16 Telmisartan 40 mg PO DAILY 05/16/16 Triamterene [Dyrenium -] 37.5 mg PO Q48H 05/16/16 Clopidogrel Bisulfate [Clopidogrel] 37.5 mg PO DAILY 12/14/18 Cefuroxime Axetil [Ceftin -] 500 mg PO Q12H #10 tablet 12/15/18 Problem List - Problems (1) ASHD (arteriosclerotic heart disease) Assessment/Plan: followed by cardiology, elevated tropnins unlikely ACS. patient remains asymptomatic. follows spray machine operator as an outpatient and wants to repeat echo with her spray machine operator. she will call for an appointment. no chest pain, no shortness of breath. she had an echo done february 2018. Code(s): I25.10 - ATHSCL HEART DISEASE OF [place] CORONARY ARTERY W/O ANG PCTRS (2) HTN (hypertension) Assessment/Plan: controlled. continue home meds. Code(s): I10 - ESSENTIAL (PRIMARY) HYPERTENSION Qualifiers: Hypertension type: essential hypertension Qualified Code(s): I10 - Essential (primary) hypertension (3) Hydronephrosis with renal and ureteral calculous obstruction Assessment/Plan: s/p lithotripsy and stent placement. stent dislodged and removed. patient to f/u outpatient. continue ceftin 500mg bid x 5 more days. Code(s): N13.2 - HYDRONEPHROSIS WITH RENAL AND URETERAL CALCULOUS OBSTRUCTION (4) Ureteral calculus, left Assessment/Plan: patient is s/p lithotripsy and left stent placed on 12/14/[address] durbin. stent noted to be dislodged on exam. discussed with urology (dr durbin), who advised me to remove the stent, continue the antibiotics x 5 days. on removal, patient noted relief of incontinence and agrees to outpatient follow up. Code(s): N20.1 - CALCULUS OF URETER This patient is new to me today: Yes Date on this admission: 12/15/18 Emergency Visit: Yes ED Registration Date: 12/13/18 Care time: The patient presented to the Emergency Department on the above date and was hospitalized for further evaluation of their emergent condition. Critical Care patient: No - Discharge Referral Referred to [facility] No
[2018-12-15 14:23] VITALS: BP 152/74; PULSE 67; TEMP 97.8
--- NOTE | 2018-12-15 20:23 | EKG ---
Test Reason : Blood Pressure : / mmHG Vent. Rate : 070 BPM Atrial Rate : 070 BPM P-R Int : 172 ms QRS Dur : 070 ms QT Int : 410 ms P-R-T Axes : 057 025 033 degrees QTc Int : 442 ms NORMAL SINUS RHYTHM NORMAL ECG WHEN COMPARED WITH ECG OF 13-DEC-2018 13:41, NO SIGNIFICANT CHANGE WAS FOUND Confirmed by MD MATT, THOMAS ([id number]) on 12/15/2018 8:23:00 PM Referred By: Confirmed By:THOMAS GUTIERREZ MD
--- NOTE | 2018-12-17 14:04 | PATH ---
Surgical Pathology Report Patient Name: LEE ANN OMALLEY Med. Rec. #: [id number] /Age/Gender: 1940 (Age: 78) / F Account: [id number] Location: [address] [place] [address]/[facility] Taken: 12/14/2018 Received: 12/14/2018 Reported: 12/17/2018 Physicians: Servando Durbin M.D. Specimen(s) Received LEFT URETERAL STONE Clinical History Left ureteral stone Final Diagnosis URETERAL STONE, LEFT, STONE BASKETING: URETEROLITHIASIS. MACROSCOPIC DIAGNOSIS. Electronically Signed Missy Dumont M.D. Gross Description Received fresh labeled "left ureteral stone," is a 0.4 cm baker, irregular calculus which is sent for chemical analysis. /12/14/2018 [place]12/14/2018
--- NOTE | 2018-12-17 15:52 | OP ---
DATE OF OPERATION: 12/14/2018 PREOPERATIVE DIAGNOSIS: Left ureteral calculus, left hydronephrosis. POSTOPERATIVE DIAGNOSIS: Left ureteral calculus, left hydronephrosis. PROCEDURE: Cystoscopy, left ureteroscopic laser lithotripsy, and double J stent insertion. SURGEON: Servando Benson MD NURSES EDUCATOR: None. ANESTHESIA: General via laryngeal mask. ANESTHESIOLOGIST: Holger Johnson MD SPECIMENS: Left ureteral calculus. CULTURES: None. DRAINS: 6-[place] 24-cm left double J stent. ESTIMATED BLOOD LOSS: None. COMPLICATIONS: None. DESCRIPTION OF PROCEDURE: Patient was brought in the operating room. Placed on the operating table in supine position. After administration of general anesthesia via laryngeal mask, intravenous antibiotics were administered. Sequential compression devices were placed. Patient was placed in dorsal lithotomy position. Vagina and perineum were prepped and draped in usual sterile manner. The 22-Zimbabwean cystoscope was inserted into the bladder with the obturator in place. The obturator was removed, and urine was evacuated. A 30-degree telescope was inserted, and cystoscopy was performed. This demonstrated no foreign bodies, tumors, stones, inflammation. Both ureteral orifices were in their usual location with diminished efflux from the left ureteral orifice. The left ureteral orifice was cannulated with a 0.038 guidewire, which was advanced to the level of the left renal pelvis under fluoroscopic and direct visual guidance. Now the bladder was emptied, cystoscope removed. The semirigid ureteroscope was inserted alongside the guidewire to the distal ureter where an approximately 4-mm stone was visualized. Now the 365-micron laser fiber was inserted. Laser lithotripsy was done. Now the stone was basketed and removed. The cystoscope was backloaded. Retrograde pyelogram was done. Demonstrated mild left hydronephrosis. No extravasation of contrast. The cystoscope was backloaded and then a 6-[place] 24-cm left double J stent was inserted over the guidewire under direct visual and fluoroscopic guidance leaving 1 coil in the renal pelvis and 1 coil in the bladder. The bladder was emptied and the cystoscope removed. Stent was secured to her thigh with a suture and a Tegaderm. She tolerated the procedure well. Was awoken from anesthesia in the operating room. Transferred to the recovery in stable condition. SERVANDO BENSON M.D. [id number]
[2018-12-25 10:07] LABS: CA OXALATE MONOHYDR. 95 % (.); WEIGHT 16.3 mg (.)
== END 2018-12-15 14:52 | disposition home or self-care (01) | DRG 660 ==
LOC: JER 13:32 → JERBED 19:55 → J6S 12-14 03:17
PROVIDERS: ADMIT Internal Medicine; ATTEND Nurse Practitioner Family
PROC: 0TC78ZZ Extirpation of Matter from Left Ureter, Via Natural or Artificial Opening Endoscopic (ICD-10-PCS; principal; 2018-12-14 16:00)
PROC: 0T778DZ Dilation of Left Ureter with Intraluminal Device, Via Natural or Artificial Opening Endoscopic (ICD-10-PCS; 2018-12-14 16:00)
DX: N13.2 Hydronephrosis with renal and ureteral calculous obstruction (principal); K86.2 Cyst of pancreas; I24.8 Other forms of acute ischemic heart disease; F31.89 Other bipolar disorder; I25.10 Atherosclerotic heart disease of native coronary artery without angina pectoris; K57.90 Diverticulosis of intestine, part unspecified, without perforation or abscess without bleeding; I10 Essential (primary) hypertension; I25.2 Old myocardial infarction; E11.9 Type 2 diabetes mellitus without complications; F41.8 Other specified anxiety disorders; M10.9 Gout, unspecified; E87.6 Hypokalemia; Z95.1 Presence of aortocoronary bypass graft; Z95.5 Presence of coronary angioplasty implant and graft
CPT/HCPCS: 36415; 71045-TC-FY; 74177-TC; 76000-TC-FY; 80053; 81003; 82360; 82962; 83690; 83735; 84100; 84484; 84550; 85025; 85027; 85610; 85730; 86850; 86900; 86901; 87086; 88300-TC; 93005; 93010; 94760; 99285-25; J7030; Q9967

== ENCOUNTER 2021-08-20 13:11 | Emergency (ER) | payer OTHER, MEDICARE ==
[2021-08-20 13:20] VITALS: BP 111/70; PULSE 64; TEMP 97.9; BMI 32.0
[2021-08-20 15:48] LABS: BASO % 0.5 % (0-2.0); EOS % 0.8 % (0-4.5); HEMATOCRIT 44.1 % (32.4-45.2); HEMOGLOBIN 14.6 GM/dL (10.7-15.3); LYMPH % 21.3 % (8-40); MCH 29.6 pg (25.7-33.7); MCHC 33.2 g/dl (32.0-36.0); MEAN PLT VOLUME 9.5 fl (7.5-11.1); MONO % 7.4 % (3.8-10.2); PLATELET COUNT 193 10^3/uL (134-434); RBC 4.95 M/mm3 (3.60-5.2); RDW 14.9 % (11.6-15.6); WHITE BLOOD COUNT 10.5 K/mm3 (4.0-10.0)
[2021-08-20 16:09] LABS: BLOOD UREA NITROGEN 16.2 mg/dL (7-18); CALCIUM 8.9 mg/dL (8.5-10.1)
[2021-08-20 16:10] LABS: ALBUMIN 3.5 g/dl (3.4-5.0)
[2021-08-20 16:14] LABS: BILIRUBIN,TOTAL 0.9 mg/dL (0.2-1); CREATININE 1.6 mg/dL (0.55-1.3); TOT PROT 7.5 g/dl (6.4-8.2)
[2021-08-20] MEDS ORDERED: AMOX TR/POT CLAV 875MG/125MG TABLETS (FP) PO ONE (18:05)
[2021-08-20] MEDS ORDERED: AMOX TR/POT CLAV 875MG/125MG TABLETS (FP) ONE (18:09)
== END 2021-08-20 18:18 | disposition home or self-care (01) ==
LOC: JER 13:11
DX: K57.92 Diverticulitis of intestine, part unspecified, without perforation or abscess without bleeding (principal)
CPT/HCPCS: 36415; 74176-TC; 80053; 85025; 99284-25